=== PATIENT | female | born 1945 | race Caucasian/White ===

== ENCOUNTER 2017-07-08 12:45 | Emergency (ER) | payer OTHER ==
[~2017-07-08 12:45] MED LIST: ADVIL COLD & S1 EACH PO; ALBUTEROL2.5 MG/3 M INH/SOL; LEVAQUIN500 M1 PO; LEVAQUIN750 M1 PO; PREDNISONE10 M2 PO; SERTRALINE HCL100 MG PO; SPIRIVA18 MCG INH; SYMBICORT 16010.2 GM INH; VENTOLIN HFA18 GM INH
--- NOTE | 2017-07-08 14:44 | ED UPPER/LOWER EXTREMITY COMPL ---
History of Present Illness General Chief Complaint: Lower Extremity Problems Stated Complaint: RT LEG AND FOOT SWELLING Source: patient Exam Limitations: no limitations Vital Signs & Intake/Output Vital Signs & Intake/Output Vital Signs Date Time Temp Pulse Resp B/P B/P Pulse O2 O2 Flow FiO2 Mean Ox Delivery Rate 07/08 1646 97.8 87 18 153/72 93 Room Air 07/08 1511 98.0 82 20 155/71 97 Nasal 2.0L Cannula 07/08 1251 98.1 94 22 180/100 95 Nasal 2.0L Cannula Allergies Coded Allergies: No Known Drug Allergies (Intermediate, NONE 03/06/17) Reconcile Medications Albuterol Sulfate 2.5 MG/3 ML (0.083 %) VIAL.NEB 1 Vial INH/TERRANCE Q4P PRN COPD (Reported) Albuterol Sulfate (Ventolin Hfa) 90 MCG HFA.AER.AD 2 PUF INH BID PRN COPD ( Reported) Budesonide/Formoterol Fumarate (Symbicort 160-4.5 Mcg Inhaler) 160 MCG-4.5 MCG/ ACTUATION HFA.AER.AD 2 PUF INH BID COPD (Reported) Sertraline HCl 100 MG TABLET 1.5 TAB PO DAILY MENTAL HEALTH (Reported) Triage Note: PER PT REPORTS RLE SWELLING SINCE YESTERDAY, DENIES TRAUMA OR INJURY. SL DIFFERENCE IN SIZE Triage Nurses Notes Reviewed? yes Onset: Gradual Duration: day(s): (2) Timing: no prior history Severity: moderate Severity Numbers: 5 Pain/Injury Location: Right: Leg. Method of Injury: unknown Modifying Factors: Improves With: immobilization. Worsens With: movement. HPI: Patient is a 72-year-old female with history of emphysema on chronic oxygen presenting to the emergency department she complained of right lower extremity swelling of been going on for the past 2 days. Denies any trauma to the leg. Patient also reports achy pain that is worse with walking. Denies numbness or tingling. Denies chest pain, worsening shortness of breath or palpitations. Has not tried anything but elevation for swelling. (Rob DE LA TORRE,Theresa) Past History Travel History Traveled to [place] past 21 day No Medical History Any Pertinent Medical History? see below for history Neurological: NONE EENT: NONE Cardiovascular: NONE Respiratory: COPD Gastrointestinal: NONE Hepatic: NONE Renal: NONE Musculoskeletal: NONE Psychiatric: NONE Endocrine: NONE Surgical History Surgical History: non-contributory Psychosocial History What is your primary language Syriac Tobacco Use: Never used Family History Hx Contributory? No (Theresa Lemons) Review of Systems Review of Systems Constitutional: Reports: no symptoms. Comments Review of systems: See HPI, All other systems negative. Constitutional, no chills fever or weight loss HEENT: No visual changes no sore throat no congestion Cardiovascular: No chest pain ,palpitation , orthopnea Skin, no jaundice no rashes Respiratory: No dyspnea cough sputum or hemoptysis GI: No nausea no vomiting : No dysuria No hematuria Muscle skeletal: no back pain, no neck pain, Neurologic: No numbness no confusion no headaches Psych: No stress anxiety or depression,. Heme/endocrine: No bruising no bleeding no polyuria or polydipsia Immunology: No splenectomy or history of AIDS (Theresa Lemons) Physical Exam Physical Exam General Appearance: well developed/nourished, no apparent distress, alert, awake , comfortable Comments: Well-developed well-nourished person in no acute distress HEENT: Pupils equally round and reactive to light and accommodation. Nose is atraumatic. Neck: Normal inspection Back: Nontender Cardiovascular: Regular rate and rhythms no murmurs rubs or gallops, normal JVP Respiratory: No respiratory distress. Slight diffuse wheezing to auscultation bilaterally Extremity: Mild nonpitting edema noted in the right lower extremity extending from the distal aspect of the leg on the right side up to mid calf. Positive Tenderness to palpation on the right side only. Mild tenderness to palpation in the right popliteal space. Range of motion of right and left lower extremities without difficulty or pain. Pedal pulses are 2+ bilaterally. Neuro: Alert oriented x3, motor sensory normal Skin: No appreciable rash on exposed skin, skin is warm and dry. Psych: Mood and affect is normal, memory and judgment is normal. (Theresa Lemons) Progress Differential Diagnosis: contusion, dislocation, DVT, fracture, sprain, tendon injury Plan of Care: Orders Procedure Date/time Status US-UNILATERAL VENOUS DOPPLER 07/08 5277 Active d/w dr smith and he gailss with plan. pt d/c home and will follow up with pcp and ortho if symtpos persits. pt non-toxic. Diagnostic Imaging: Viewed by Me: Ultrasound. Discussed w/RAD: Ultrasound. Radiology Impression: PATIENT: BARNEY KIMBROUGH PRESENT AGE: 72 PATIENT ACCOUNT NO: [id number] : 47 LOCATION: [facility] ORDERING PHYSICIAN: Theresa DE LA TORRE SERVICE DATE: 07/08/17 EXAM TYPE: US - US-UNILATERAL VENOUS DOPPLER EXAMINATION: US TRIPLEX LOWER EXTREMITY, RIGHT CLINICAL INFORMATION: Pain COMPARISON: None TECHNIQUE: Color-flow triplex imaging with spectral analysis and compression Doppler were performed on the lower extremity. FINDINGS: Respiratory variation, normal compression and augmented flow are noted throughout the lower extremity. The visualized common femoral vein, superficial femoral vein, profunda femoral vein, popliteal vein and midcalf peroneal and posterior tibial venous segments show no evidence of deep venous thrombosis. Arboleda's cyst measuring 3.7 x 3.7 x 0.6 cm with septation. IMPRESSION: No evidence of deep venous thrombosis involving the lower extremity. 3.7 cm Arboleda's cyst. DICTATED BY: Darryl Stanley MD DATE/TIME DICTATED:07/08/171629 SUPERVISOR [employer]PENTERS:EDWINA DATE/TIME TRANSCRIBED:1629 CONFIDENTIAL, DO NOT COPY WITHOUT APPROPRIATE AUTHORIZATION. < Electronically signed in Other Vendor System> SIGNED BY: Darryl Stanley MD 07/08/171638 (Theresa Lemons) Departure Departure Time of Disposition: 1643 Disposition: HOME OR SELF CARE Condition: Stable Clinical Impression Primary Impression: Bakers cyst Qualifiers: Laterality: right Qualified Code: M71.21 - Synovial cyst of popliteal space [Arboleda], right knee Referrals: Elizabeth Cloes APRN (PCP/Family) Tracey LOPEZ,John Diaz Additional Instructions: Follow-up with your primary care physician in the next 5-7 days. You can also follow-up with orthopedics if symptoms persist. Return for worsening symptoms or concerns. rest and elevate leg as much as possible. Wear compression stockings found to any pharmacy to help with swelling. Departure Forms: Customer Survey General Discharge Information (Theresa Lemons) PA/[employer] Co-Sign Statement Statement: ED Attending supervision documentation- [] I saw and evaluated the patient. I have also reviewed all the pertinent lab results and diagnostic results. I agree with the findings and the plan of care as documented in the PA's/[employer]'s documentation. [x] I have reviewed the ED Record and agree with the PA's/[employer]'s documentation. [] Additions or exceptions (if any) to the PAs/[employer]'s note and plan are summarized below: [] (Jorgito Smith DO)
--- NOTE | 2017-07-08 16:39 | ULTRASOUND REPORT ---
EXAMINATION: US TRIPLEX LOWER EXTREMITY, RIGHT CLINICAL INFORMATION: Pain COMPARISON: None TECHNIQUE: Color-flow triplex imaging with spectral analysis and compression Doppler were performed on the lower extremity. FINDINGS: Respiratory variation, normal compression and augmented flow are noted throughout the lower extremity. The visualized common femoral vein, superficial femoral vein, profunda femoral vein, popliteal vein and midcalf peroneal and posterior tibial venous segments show no evidence of deep venous thrombosis. Arboleda's cyst measuring 3.7 x 3.7 x 0.6 cm with septation. IMPRESSION: No evidence of deep venous thrombosis involving the lower extremity. 3.7 cm Arboleda's cyst.
[2017-07-08 16:46] VITALS: BP 153/72
== END 2017-07-08 16:55 ==
LOC: ERH 12:45
DX: M71.21 Synovial cyst of popliteal space [Baker], right knee (principal)